=== PATIENT | female | born 1960 | race Caucasian/White ===

== ENCOUNTER 2017-10-12 07:55 | Emergency (ER) | payer BC, OTHER ==
[2017-10-12] MEDS ORDERED: ACETAMINOPHEN 325 MG TABLET PO ONE (08:13)
--- NOTE | 2017-10-12 09:12 | RADIOLOGY REPORT (SQ) ---
EXAM DESCRIPTION: HAND LEFT 3 VIEWS COMPLETED DATE/TIME: 10/12/2017 9:03 am REASON FOR STUDY: hand injury/pain COMPARISON: None. EXAM PARAMETERS: NUMBER OF VIEWS: Three views. TECHNIQUE: AP, lateral and oblique radiographic images acquired of the left hand. LIMITATIONS: None. FINDINGS: MINERALIZATION: Osteopenic BONES: Acute nondisplaced fracture, left 5th metacarpal head, sparing the metacarpophalangeal joint. No angulation. JOINTS: No effusions. SOFT TISSUES: Dorsal left hand soft tissue swelling. No foreign body. OTHER: No other significant finding. IMPRESSION: Acute nondisplaced fracture, left 5th metacarpal head without definite extension into th e MCP joint. Overlying tissue swelling TECHNICAL DOCUMENTATION: JOB ID: [id number] [employer]- All Rights Reserved
--- NOTE | 2017-10-12 09:38 | ER Document Report ---
ED Fall - General Chief Complaint: Fall Injury Stated Complaint: LEFT HAND PAIN/FALL Time Seen by Provider: 10/12/17 08:26 Mode of Arrival: Ambulatory Information source: Patient Notes: Patient is a 57-year-old female who presents to the ER today after tripping and falling this morning, hitting the left hand on the door jam. Patient states that it is swollen and painful to the lateral left hand. She denies any numbness or tingling. She denies any pain anywhere else or hitting her head, loss of consciousness. TRAVEL OUTSIDE OF THE [place] IN LAST 30 DAYS: No - Related data Allergies/Adverse Reactions: montelukast sodium [From Singulair] Allergy (Intermediate, Verified 10/12/17 08: 14) alcohol Allergy (Verified 10/12/17 08:14) doxycycline [Doxycycline] Allergy (Verified 10/12/17 08:14) escitalopram oxalate [From Lexapro] Allergy (Verified 10/12/17 08:14) iodine [Iodine] Allergy (Verified 10/12/17 08:14) Penicillins Allergy (Verified 10/12/17 08:14) Shellfish * [Shellfish] Allergy (Verified 10/12/17 08:14) sulfamethoxazole [From Bactrim] Allergy (Verified 10/12/17 08:14) trimethoprim [From Bactrim] Allergy (Verified 10/12/17 08:14) Sulfa (Sulfonamide Antibiotics) Adverse Reaction (Verified 10/12/17 08:14) broccoli Allergy (Severe, Uncoded 07/25/13 10:03) cranberries Allergy (Uncoded 07/25/13 02:04) mushrooms Allergy (Uncoded 11/23/13 02:24) Past Medical History - General Information source: Patient - Social History Smoking Status: Former Smoker Chew tobacco use (# tins/day): No Frequency of alcohol use: None Drug Abuse: None Family History: Reviewed & Not Pertinent Patient has suicidal ideation: No Patient has homicidal ideation: No - Past Medical History Cardiac Medical History: Reports: Hx Atrial Fibrillation - pt is not sure if clinically diagnosed, Hx Congestive Heart Failure, Hx Hypertension Pulmonary Medical History: Reports: Hx Asthma, Hx Bronchitis, Hx COPD, Hx Pneumonia Denies: Hx Tuberculosis Endocrine Medical History: Reports: Hx Diabetes Mellitus Type 2 - steroid induced hperglycemia, all the A1c's are normal Renal/ Medical History: Denies: Hx Peritoneal Dialysis Psychiatric Medical History: Reports: Hx Depression Past Surgical History: Reports: Hx Hysterectomy - Immunizations Hx Diphtheria, Pertussis, Tetanus Vaccination: Yes Review of Systems - Review of Systems Constitutional: No symptoms reported EENT: No symptoms reported Cardiovascular: No symptoms reported Respiratory: No symptoms reported Gastrointestinal: No symptoms reported Genitourinary: No symptoms reported Female Genitourinary: No symptoms reported Musculoskeletal: See HPI Skin: No symptoms reported Hematologic/Lymphatic: No symptoms reported Neurological/Psychological: No symptoms reported Physical Exam - Vital signs Vitals: Temp Pulse Resp BP Pulse Ox 97.8 F 76 16 161/95 H 98 10/12/17 08:08 10/12/17 08:08 10/12/17 08:08 10/12/17 08:08 10/12/17 08:08 - Notes Notes: PHYSICAL EXAMINATION: GENERAL: Well-appearing and in no acute distress. HEAD: Atraumatic, normocephalic. EYES: Pupils equal round and reactive to light, extraocular movements intact, sclera anicteric, conjunctiva are normal. ENT: ear canals without erythema or foreign body, TMs pearly michel with good bony landmarks, nares patent, oropharynx clear without exudates. Moist mucous membranes. NECK: Normal range of motion, supple without lymphadenopathy LUNGS: CTAB and equal. No wheezes rales or rhonchi. HEART: Regular rate and rhythm without murmurs ABDOMEN: Soft, no tenderness. No guarding, no rebound BACK: no vertebral tenderness, normal ROM GI/: no CVA tenderness EXTREMITIES: Mild edema and tenderness to palpation over lateral dorsal left hand, normal range of motion, no pitting edema. No cyanosis. NEUROLOGICAL: Cranial nerves grossly intact. Normal sensory/motor exams. PSYCH: Normal mood, normal affect. SKIN: Warm, Dry, normal turgor, no rashes or lesions noted Course - Re-evaluation Re-evalutation: 10/12/17 09:36 nondisplaced fifth metacarpal fracture of the left hand, patient placed in an ulnar gutter splint. Given orthopedic information to follow-up with. - Vital Signs Vital signs: Temp Pulse Resp BP Pulse Ox 97.8 F 76 16 161/95 H 98 10/12/17 08:08 10/12/17 08:08 10/12/17 08:08 10/12/17 08:08 10/12/17 08:08 Procedures - Immobilization Left Hand Time completed: 09:45 Pre-Proc Neuro Vasc Exam: Normal Immobilizer type: Ulnar Performed by: PCT Post-Proc Neuro Vasc Exam: Normal Alignment checked and good: Yes Discharge - Discharge Clinical Impression: Boxers fracture Qualifiers: Encounter type: initial encounter Fracture type: closed Qualified Code(s): S62.339A - Displaced fracture of neck of unspecified metacarpal bone, initial encounter for closed fracture Condition: Stable Disposition: HOME, SELF-CARE Additional Instructions: Return immediately for any new or worsening symptoms. Follow up with orthopedics, call tomorrow to make followup appointment. Prescriptions: Hydrocodone/Acetaminophen [[place] 5-325 mg Tablet] 1 tab PO Q4 PRN #15 tab PRN Reason: Referrals: WILLA FOREMAN MD [Primary Care Provider] - Follow up as needed LEO COOPER DO [ACTIVE STAFF] - Follow up as needed
[2017-10-12 10:48] VITALS: BP 165/90
== END 2017-10-12 10:44 | disposition home or self-care (01) ==
LOC: ER 07:55
DX: S62.397A Other fracture of fifth metacarpal bone, left hand, initial encounter for closed fracture (principal); W19.XXXA Unspecified fall, initial encounter; I10 Essential (primary) hypertension; J44.9 Chronic obstructive pulmonary disease, unspecified; Z88.8 Allergy status to other drugs, medicaments and biological substances; Z88.1 Allergy status to other antibiotic agents; Z88.0 Allergy status to penicillin; Z91.013 Allergy to seafood; Z91.018 Allergy to other foods; Z88.2 Allergy status to sulfonamides; Z87.891 Personal history of nicotine dependence
CPT/HCPCS: 99283

== ENCOUNTER 2019-01-27 22:04 | Emergency (ER) | payer OTHER ==
--- NOTE | 2019-01-27 22:17 | ER Document Report ---
ED Medical Screen (RME) - General Stated Complaint: SHORTNESS OF BREATH Time Seen by Provider: 01/27/19 22:09 Primary Care Provider: WILLA FOREMAN MD [Primary Care Provider] - Follow up as needed Mode of Arrival: Ambulatory Information source: Patient Notes: PT REPORTS RECENT HISTORY OF PNEUMONIA ADMITTED AT [facility]. EXTREMELY SOB, NO FEVER, NO CP, NO V/D, HISTORY OF ASTHMA, BREATHING TREATMENTS NOT HELPING, +RALES, COUGH 02SAT 95% I have greeted and performed a rapid initial assessment of this patient. A comprehensive ED assessment and evaluation of the patient, analysis of test results and completion of the medical decision making process will be conducted by additional ED providers. TRAVEL OUTSIDE OF THE [place] IN LAST 30 DAYS: No - Related Data Allergies/Adverse Reactions: montelukast sodium [From Singulair] Allergy (Intermediate, Verified 10/12/17 08:14) alcohol Allergy (Verified 10/12/17 08:14) doxycycline [Doxycycline] Allergy (Verified 10/12/17 08:14) escitalopram oxalate [From Lexapro] Allergy (Verified 10/12/17 08:14) iodine [Iodine] Allergy (Verified 10/12/17 08:14) Penicillins Allergy (Verified 10/12/17 08:14) Shellfish * [Shellfish] Allergy (Verified 10/12/17 08:14) sulfamethoxazole [From Bactrim] Allergy (Verified 10/12/17 08:14) trimethoprim [From Bactrim] Allergy (Verified 10/12/17 08:14) Sulfa (Sulfonamide Antibiotics) Adverse Reaction (Verified 10/12/17 08:14) broccoli Allergy (Severe, Uncoded 07/25/13 10:03) cranberries Allergy (Uncoded 07/25/13 02:04) mushrooms Allergy (Uncoded 11/23/13 02:24) Past Medical History - Past Medical History Cardiac Medical History: Reports: Hx Atrial Fibrillation - pt is not sure if clinically diagnosed, Hx Congestive Heart Failure, Hx Hypertension Pulmonary Medical History: Reports: Hx Asthma, Hx Bronchitis, Hx COPD, Hx Pneumonia Denies: Hx Tuberculosis Endocrine Medical History: Reports: Hx Diabetes Mellitus Type 2 - steroid induced hperglycemia, all the A1c's are normal Renal/ Medical History: Denies: Hx Peritoneal Dialysis Psychiatric Medical History: Reports: Hx Depression Past Surgical History: Reports: Hx Hysterectomy - Immunizations Hx Diphtheria, Pertussis, Tetanus Vaccination: Yes Course - Laboratory Result Diagrams: 01/27/19 23:00 01/27/19 23:00 Laboratory results interpreted by me: 01/27/19 01/27/19 23:00 23:00 WBC 10.9 H AST 11 L Doctor's Discharge - Discharge Referrals: WILLA FOREMAN MD [Primary Care Provider] - Follow up as needed
--- NOTE | 2019-01-27 22:41 | EKG REPORT ---
SEVERITY:- NORMAL ECG - SINUS RHYTHM : Confirmed by: Mati Naqvi MD 27-Jan-2019 22:41:04
[2019-01-27 23:27] LABS: ABSOLUTE EOSINOPHILS # (AUTO) 0.6 10^3/uL (0.0-0.6); ABSOLUTE LYMPHOCYTES (AUTO) 2.3 10^3/uL (0.5-4.7); ABSOLUTE MONOCYTES (AUTO) 0.6 10^3/uL (0.1-1.4); ABSOLUTE NEUT (AUTO) 7.3 10^3/uL (1.7-8.2); BASOPHILS % (AUTO) 0.4 % (0-2); EOSINOPHILS % (AUTO) 5.8 % (0-6); HEMATOCRIT 37.5 % (36.0-47.0); LYMPHOCYTES % (AUTO) 21.5 % (13-45); MEAN CORPUSCULAR HEMOGLOBIN 30.8 pg (27.0-33.4); MEAN CORPUSCULAR HGB CONC 34.6 g/dL (32.0-36.0); MEAN CORPUSCULAR VOLUME 89 fl (80-97); MONOCYTES % (AUTO) 5.2 % (3-13); PLATELET COUNT 367 10^3/uL (150-450); RED BLOOD COUNT 4.22 10^6/uL (3.72-5.28); RED CELL DISTRIBUTION WIDTH 13.2 % (11.5-14.0); SEGMENTED NEUTROPHILS % (AUTO) 67.1 % (42-78); TOTAL CELLS COUNTED % (AUTO) 100 %; WHITE BLOOD COUNT 10.9 10^3/uL (4.0-10.5)
[2019-01-27 23:47] LABS: ALANINE AMINOTRANSFERASE 11 U/L (9-52); ALKALINE PHOSPHATASE 91 U/L (38-126); ANION GAP 11 (5-19); ASPARTATE AMINO TRANSFERASE 11 U/L (14-36); BILIRUBIN,DIRECT 0.3 mg/dL (0.0-0.4); BILIRUBIN,TOTAL 0.3 mg/dL (0.2-1.3); BLOOD UREA NITROGEN 11 mg/dL (7-20); CALCIUM 9.6 mg/dL (8.4-10.2); CARBON DIOXIDE 26 mmol/L (22-30); CHLORIDE 104 mmol/L (98-107); GLUCOSE 96 mg/dL (75-110); POTASSIUM 4.2 mmol/L (3.6-5.0); SODIUM 140.7 mmol/L (137-145); TOTAL PROTEIN 6.5 g/dL (6.3-8.2)
--- NOTE | 2019-01-27 23:48 | RADIOLOGY REPORT (SQ) ---
XR CHEST 2 VIEWS HISTORY: SOB. COMPARISON: 11/23/2015 FINDINGS: The heart size is normal. The lungs are clear. No pleural effusion or pneumothorax is seen. No acute bony findings. IMPRESSION: No evidence of acute cardiopulmonary disease.
[2019-01-28] MEDS ORDERED: IPRATROPIUM/ALBUTEROL 0.5-2.5 MG/3 ML AMPUL NEB ONE (02:57)
[2019-01-28] MEDS ORDERED: METHYLPREDNISOLONE INJ 125 MG/2 ML SDV IV ONE (02:57)
[2019-01-28] MEDS ORDERED: ALBUTEROL SULFATE 0.083% NEB 2.5 MG/3 ML AMPUL NEB ONE ×2 (02:57)
[2019-01-28 05:05] VITALS: BP 146/76
--- NOTE | 2019-01-28 05:49 | ER Document Report ---
Entered by FRED GOMEZ SCRIBE 01/28/19 0325 Acting as scribe for:OBDULIA VILLASENOR DO ED Respiratory Problem - General Chief Complaint: Shortness Of Breath Stated Complaint: SHORTNESS OF BREATH Time Seen by Provider: 01/27/19 22:09 Primary Care Provider: WILLA FOREMAN MD [Primary Care Provider] - Follow up as needed Mode of Arrival: Ambulatory Information source: Patient Notes: 58 year old female with asthma and a x45 year smoking history that presents to the emergency department today with complaints of shortness of breath. Patient states that she was diagnosed with double pneumonia during the last week of December and was admitted to [facility] for this. Patient states she feels like she has "never recovered from that." Patient states that she has been using breathing treatments and inhalers at home with minimal relief. Patient states she last took steroids on January 13. Patient states that she has been sleeping in a recliner recently due to her being nervous to walk up steps to get into her bed. Patient has a slight cough. Patient denies any leg swelling, history of CHF, or history of PE/DVT. TRAVEL OUTSIDE OF THE [place] IN LAST 30 DAYS: No - Related Data Allergies/Adverse Reactions: montelukast sodium [From Singulair] Allergy (Intermediate, Verified 01/28/19 03:27) alcohol Allergy (Verified 01/28/19 03:27) doxycycline [Doxycycline] Allergy (Verified 01/28/19 03:27) escitalopram oxalate [From Lexapro] Allergy (Verified 01/28/19 03:27) iodine [Iodine] Allergy (Verified 01/28/19 03:27) Penicillins Allergy (Verified 01/28/19 03:27) Shellfish * [Shellfish] Allergy (Verified 01/28/19 03:27) sulfamethoxazole [From Bactrim] Allergy (Verified 01/28/19 03:27) trimethoprim [From Bactrim] Allergy (Verified 01/28/19 03:27) Sulfa (Sulfonamide Antibiotics) Adverse Reaction (Verified 01/28/19 03:27) broccoli Allergy (Severe, Uncoded 07/25/13 10:03) cranberries Allergy (Uncoded 07/25/13 02:04) mushrooms Allergy (Uncoded 11/23/13 02:24) Past Medical History - General Information source: Patient - Social History Smoking Status: Current Some Day Smoker - 45 year history, states she is currently "stopped smoking" Cigarette use (# per day): No Frequency of alcohol use: None Drug Abuse: None Lives with: Family Family History: Reviewed & Not Pertinent Patient has suicidal ideation: No Patient has homicidal ideation: No - Past Medical History Cardiac Medical History: Reports: Hx Atrial Fibrillation - pt is not sure if clinically diagnosed, Hx Congestive Heart Failure, Hx Hypertension Pulmonary Medical History: Reports: Hx Asthma, Hx Bronchitis, Hx COPD, Hx Pneumonia Endocrine Medical History: Reports: Hx Diabetes Mellitus Type 2 - steroid yuriy brittany hperglycemia, all the A1c's are normal Psychiatric Medical History: Reports: Hx Depression Past Surgical History: Reports: Hx Hysterectomy - Immunizations Hx Diphtheria, Pertussis, Tetanus Vaccination: Yes Review of Systems - Review of Systems Constitutional: No symptoms reported EENT: No symptoms reported Cardiovascular: No symptoms reported Respiratory: See HPI, Cough, Short of breath Gastrointestinal: No symptoms reported Genitourinary: No symptoms reported Female Genitourinary: No symptoms reported Musculoskeletal: denies: Leg swelling Skin: No symptoms reported Hematologic/Lymphatic: No symptoms reported Neurological/Psychological: No symptoms reported -: Yes All other systems reviewed and negative Physical Exam - Vital signs Vitals: Temp Pulse Resp BP Pulse Ox 98.2 F 86 20 156/72 H 95 01/27/19 22:17 01/27/19 22:17 01/27/19 22:17 01/27/19 22:17 01/27/19 22:17 - Notes Notes: PHYSICAL EXAM GENERAL: Alert. Appears short of breath and fatigued when conversing. HEAD: Normocephalic, atraumatic. EYES: Pupils equal, round, and reactive to light. Extraocular movements intact. ENT: Oral mucosa moist, tongue midline. NECK: Full range of motion. Supple. Trachea midline. LUNGS: Speaking in 3-4 word sentences. Diffuse expiratory wheezing bilaterally. Tachypneic. Moderate respiratory distress. HEART: Tachycardic, regular rhythm. No murmurs, gallops, or rubs. EXTREMITIES: Moves all 4 extremities spontaneously. NEUROLOGICAL: Alert and oriented x3. Normal speech. PSYCH: Normal affect, normal mood. SKIN: Warm, dry, normal turgor. No rashes or lesions noted. Course - Re-evaluation Re-evalutation: 01/28/19 04:11 CBC shows leukocytosis of 10.9 very mild, CMP unremarkable, chest x-ray shows no acute process. Patient was given steroids and breathing treatments. [place] through her breathing treatments she was rechecked, patient is still wheezing but does not have as significantly increased work of breathing. Patient will be rechecked after the breathing treatments are complete. 01/28/19 05:46 After steroids and [id number] breathing treatments wheezing is almost completely resolved, she was ambulated on room air without any difficulty, the lowest she went was 94% on room air. Patient will be discharged home on a steroid taper and albuterol breathing treatments every 4 hours. - Vital Signs Vital signs: Temp Pulse Resp BP Pulse Ox 97.6 F 81 18 146/76 H 96 01/28/19 04:55 01/28/19 04:55 01/28/19 04:55 01/28/19 04:55 01/28/19 04:55 - Laboratory Result Diagrams: 01/27/19 23:00 01/27/19 23:00 Laboratory results interpreted by me: 01/27/19 01/27/19 23:00 23:00 WBC 10.9 H AST 11 L Discharge - Discharge Clinical Impression: Acute exacerbation of COPD with asthma Condition: Stable Disposition: HOME, SELF-CARE Additional Instructions: Please take the steroids as directed until they are gone. Please use your albuterol inhaler or breathing treatments 1 treatment every 4 hours scheduled for the next 48 hours. After that you may switch to using them only as needed. Return for chest pain, worsening shortness of breath, feeling like you are going to pass out or any new or concerning symptoms. Prescriptions: Prednisone [Deltasone 10 mg Tablet] 10 mg PO ASDIR PRN #21 tablet PRN Reason: Referrals: WILLA FOREMAN MD [Primary Care Provider] - Follow up as needed I personally performed the services described in the documentation, reviewed and edited the documentation which was dictated to the scribe in my presence, and it accurately records my words and actions.
== END 2019-01-28 06:10 | disposition home or self-care (01) ==
LOC: ER 22:04
DX: J44.1 Chronic obstructive pulmonary disease with (acute) exacerbation (principal); R06.02 Shortness of breath; R05 Cough; F17.200 Nicotine dependence, unspecified, uncomplicated; I50.9 Heart failure, unspecified; I11.0 Hypertensive heart disease with heart failure; E11.9 Type 2 diabetes mellitus without complications
CPT/HCPCS: 93005; 94640 ×2; 99285; 96374; 36415; 85025; 80053; 71046; 93010; J2930; J7620